=== PATIENT | female | born 1985 ===

== ENCOUNTER 2017-03-23 18:59 | Observation (INO) | payer OTHER ==
[2017-03-23] MEDS ORDERED: Iohexol 240 (50 ml) PO STA (20:11)
[2017-03-23] MEDS ORDERED: Sodium Chloride 0.9% 1,000 ML IV STA (20:12)
[2017-03-23] MEDS ORDERED: Iohexol 240 (50 ml) ONE (20:20)
--- NOTE | 2017-03-23 20:24 | ED PDOC ---
HPI: Abdomen Time Seen by Provider: 03/23/17 20:01 Chief Complaint (Nursing): Abdominal Pain Chief Complaint (Provider): abdominal pain History Per: Patient History/Exam Limitations: no limitations Onset/Duration Of Symptoms: Days (x 2 weeks), Intermittent Episodes Outside of [place] travel?: No Location Of Pain/Discomfort: RLQ Associated Symptoms: Nausea. denies: Fever, Chills, Vomiting, Diarrhea Additional Complaint(s): Nafisa Curtis is a 31 year old female, with no previous medical history, who presents to the ED with complaints of right lower quadrant pain intermittently ongoing for 2 weeks with associated nausea. Patient denies any urinary symptoms , vaginal bleeding, vomiting or diarrhea. PMD: none provided Past Medical History Reviewed: Historical Data, Nursing Documentation, Vital Signs Vital Signs: Last Vital Signs Temp 98.1 F 03/24/17 00:15 Pulse 84 03/24/17 00:15 Resp 16 03/24/17 00:15 BP 126/75 03/24/17 00:15 Pulse Ox 100 03/28/17 17:01 - Medical History PMH: No Chronic Diseases - Surgical History Surgical History: No Surg Hx - Family History Family History: States: No Known Family Hx - Home Medications Home Medications: Ambulatory Orders Medication Instructions Recorded Vit Calc,Iron,Folic 1 each PO DAILY #30 tablet 03/24/17 [ Vitamins] - Allergies Allergies/Adverse Reactions: Allergies Allergy/AdvReac Type Severity Reaction Status Date / Time No Known Allergies Allergy Verified 03/23/17 19:18 Review of Systems ROS Statement: Except As Marked, All Systems Reviewed And Found Negative Constitutional: Negative for: Fever, Chills Gastrointestinal: Positive for: Nausea, Abdominal Pain (RLQ). Negative for: Vomiting, Diarrhea Genitourinary Female: Negative for: Dysuria, Frequency, Incontinence, Vaginal Discharge, Vaginal Bleeding - Laboratory Results Result Diagrams: 03/23/17 20:55 03/23/17 20:55 - ECG O2 Sat by Pulse Oximetry: 100 (RA) Pulse Ox Interpretation: Normal Medical Decision Making Medical Decision Making: Initial Impression: Appendicitis Initial Plan: * CT abd Pelvis PO & IV contrast * labs * urine * urine dipstick * labs * partial thromboplastin time * prothrombin time * morphine * IV NS 1,000 ml at 1,000 ml/hr * omnipaque * zofran * urinalysis * ED OBS * reevaluation [id number]: Spoke with Dr. Lacy and findings were reviewed. States patient can be discharged and f/u w/ [facility] in clinic outpatient. Scribe Attestation: Documented by Ayla Kerr, acting as a scribe for Ayla Narayanan MD. Provider Scribe Attestation: All medical record entries made by the Scribe were at my direction and personally dictated by me. I have reviewed the chart and agree that the record accurately reflects my personal performance of the history, physical exam, medical decision making, and the department course for this patient. I have also personally directed, reviewed, and agree with the discharge instructions and disposition. ED OBSERVATION Date of observation admission: 03/23/17 Time of observation admission: 20:15 - Observation admission statement Patient is being placed in observation because:: abdominal pain, labs and ultra sound. Disposition - Clinical Impression Clinical Impression: Abdominal pain during in first trimester - Patient ED Disposition Is Patient to be Admitted: No Counseled Patient/Family Regarding: Studies Performed, Diagnosis, Need For Followup - Disposition Disposition: Routine/Home Disposition Time: 23:55 Condition: STABLE
[2017-03-23 21:01] LABS: BASO # 0.1 K/uL (0.0-0.2); BASO % 0.6 % (0.0-2.0); EOS # 0.1 K/uL (0.0-0.7); EOS % 0.4 % (0.0-4.0); HEMATOCRIT 39.9 % (34.0-47.0); LYMPH # 4.3 K/uL (1.0-4.3); LYMPH % 33.1 % (20.0-40.0); MEAN CELL VOLUME 84.5 fl (81.0-99.0); MEAN CORPUSCULAR HEMOGLOBIN 28.8 pg (27.0-31.0); MEAN PLATELET VOLUME 8.1 fl (7.2-11.7); MONO # 0.7 K/uL (0.0-0.8); MONO % 5.4 % (0.0-10.0); NEUT # 7.8 K/uL (1.8-7.0); NEUT % 60.5 % (50.0-75.0); NRBC % 0.1 % (0.0-0.0); RED CELL DISTRIBUTION WIDTH 12.8 % (11.5-14.5); WHITE BLOOD COUNT 12.9 K/uL (4.8-10.8)
[2017-03-23 21:03] LABS: RBC URINE 3 /hpf (0-3); URINE BACTERIA RARE (<OCC); URINE BILIRUBIN NEGATIVE (NEGATIVE); URINE BLOOD NEGATIVE (NEGATIVE); URINE COLOR YELLOW (YELLOW); URINE GLUCOSE (UA) NEG (Normal); URINE KETONE NEGATIVE (NEGATIVE); URINE LEUKOCYTE ESTERASE NEG Leu/uL (Negative); URINE PROTEIN NEGATIVE (NEGATIVE); URINE UROBILINOGEN 0.2-1.0 mg/dL (0.2-1.0); WBC URINE < 1 /hpf (0-5)
[2017-03-23 21:16] LABS: ALB/GLOB RATIO 1.2 (1.0-2.1); ALKALINE PHOSPHATASE 60 U/L (38-126); ALT/SGPT 24 U/L (9-52); AST/SGOT 24 U/L (14-36); BILIRUBIN,TOTAL 0.8 mg/dl (0.2-1.3); BLOOD UREA NITROGEN 13 mg/dl (7-17); CALCIUM 9.4 mg/dL (8.4-10.2); CARBON DIOXIDE 25 mmol/L (22-30); CHLORIDE 105 mmol/L (98-107); GFR AFRICAN-AMERICAN > 60; GLUCOSE,RANDOM 100 mg/dL (65-105); POTASSIUM 4.3 MMOL/L (3.6-5.0); SODIUM 139 mmol/l (132-148); TOTAL PROTEIN 7.6 G/DL (6.3-8.2)
[2017-03-23 21:21] LABS: PARTIAL THROMBOPLASTIN TIME 25.7 SECONDS (23.3-32.5)
--- NOTE | 2017-03-23 22:23 | US ---
EXAM: US , Transvaginal CLINICAL HISTORY: 31 years old, female; Pain; Other: Rlq pain; Gestational age or lmp: Unknown; TECHNIQUE: Real-time transvaginal obstetrical ultrasound of the maternal pelvis and a first trimester with image documentation. Transvaginal imaging was used for better evaluation of the fetus and adnexa. EXAM DATE/TIME: 03/23/2017 8:41 PM COMPARISON: No relevant prior studies available. FINDINGS: The uterus measures 7 x 4 x 6 cm. The cervix measures 3.5 cm. There is an intrauterine gestational sac containing a yolk sac. No pole or heart rate. Gestational sac measurements correspond to a gestational age of 5 weeks 2 days. The yolk sac measures 3 mm. The maternal left ovary is normal. There are 2 round hypoechoic lesions within the maternal right ovary both of which measure approximately 1.8 cm in diameter. One of the lesions has imaging characteristics consistent with a simple cyst. The other is heterogeneous, possibly a complex cyst, and followup is recommended. Color flow and doppler vascular waveforms were demonstrated to both maternal ovaries. IMPRESSION: Intrauterine gestational sac containing yolk sac however no pole or heart rate at this time. Recommend followup beta-hCG level and followup ultrasound.
--- NOTE | 2017-03-23 22:27 | US ---
EXAM: US Abdomen Limited, Appendix CLINICAL HISTORY: 31 years old, female; Pain; Other: Rlq; ; Additional info: Rlq pain TECHNIQUE: Real-time ultrasound of the right lower quadrant with image documentation. EXAM DATE/TIME: 03/23/2017 8:42 PM COMPARISON: No relevant prior studies available. FINDINGS: There is nonvisualization of the appendix. There are no fluid collections in the RLQ. IMPRESSION: Nonvisualization of the appendix.
[2017-03-24 02:48] VITALS: BP 126/75; PULSE 84; RESP 16; TEMP 98.1
[2017-03-28 17:01] VITALS: O2SAT 100
== END 2017-03-24 00:07 | disposition home or self-care (01) ==
LOC: H.ER 18:59 → H.EROBSV 20:11
PROVIDERS: ADMIT Emergency Medicine; ATTEND Emergency Medicine
DX: O26.891 Other specified pregnancy related conditions, first trimester (principal); R10.31 Right lower quadrant pain

== ENCOUNTER 2017-04-02 19:47 | Emergency (ER) | payer OTHER, SELFPAY ==
[2017-04-02 19:54] VITALS: RESP 16; TEMP 98.9; O2SAT 100
[2017-04-02] MEDS ORDERED: Lactated Ringer's 1,000 ML IV SCH (21:00)
--- NOTE | 2017-04-02 21:17 | ED PDOC ---
HPI: General Adult Time Seen by Provider: 04/02/17 20:16 Chief Complaint (Nursing): Abdominal Pain History Per: Patient Additional Complaint(s): Pt. states for the past 2 weeks she's had nausea and non-bloody vomiting along with R sided pelvic pain. Pt. states she is currently 5-6 weeks . Pt. was initially seen in ED 2 weeks ago for same and had an US done which was inconclusive. She f/u with Dr. Pete yesterday and had another US but is uncertain of results. Reports pain has improved but nausea has not. Denies vaginal bleeding, diarrhea, fever, dysuria, hematuria, vaginal discharge. Past Medical History Reviewed: Historical Data, Nursing Documentation, Vital Signs Vital Signs: Last Vital Signs Temp 98.9 F 04/02/17 19:51 Pulse 83 04/02/17 19:51 Resp 16 04/02/17 19:51 BP 110/63 04/02/17 19:51 Pulse Ox 100 04/02/17 21:18 - Family History Family History: States: No Known Family Hx - Home Medications Home Medications: Ambulatory Orders Medication Instructions Recorded Vit Calc,Iron,Folic 1 each PO DAILY #30 tablet 03/24/17 [ Vitamins] Doxylamine/Pyridoxine HCl (B6) 1 - 2 each PO DAILY PRN #30 04/02/17 [Canelo Saldana 10-10 mg Tablet] tablet.dr - Allergies Allergies/Adverse Reactions: Allergies Allergy/AdvReac Type Severity Reaction Status Date / Time No Known Allergies Allergy Verified 03/23/17 19:18 Review of Systems ROS Statement: Except As Marked, All Systems Reviewed And Found Negative Gastrointestinal: Positive for: Nausea, Vomiting Genitourinary Female: Positive for: Pelvic Pain Physical Exam - Reviewed Nursing Documentation Reviewed: Yes Vital Signs Reviewed: Yes - Physical Exam Appears: Positive for: Well, Non-toxic, No Acute Distress Head Exam: Positive for: ATRAUMATIC, NORMAL INSPECTION, NORMOCEPHALIC Skin: Positive for: Normal Color, Warm. Negative for: Rash Eye Exam: Positive for: EOMI, Normal appearance, PERRL ENT: Positive for: Normal ENT Inspection Neck: Positive for: Normal, Painless ROM Cardiovascular/Chest: Positive for: Regular Rate, Rhythm Respiratory: Positive for: CNT, Normal Breath Sounds Gastrointestinal/Abdominal: Positive for: Normal Exam, Soft. Negative for: Tenderness Back: Positive for: Normal Inspection. Negative for: L CVA Tenderness, R CVA Tenderness Extremity: Positive for: Normal ROM Neurologic/Psych: Positive for: Alert, Oriented - Laboratory Results Result Diagrams: 04/02/17 21:13 04/02/17 21:13 - ECG O2 Sat by Pulse Oximetry: 100 - Progress ED Course And Treament: Labs ordered. OBUS ordered. IV LR bolus x 1 given. US: IMPRESSION: 1. Single live intrauterine gestation. 2. RIGHT ovarian cyst. On re-evaluation, pt. reports complete relief of nausea. States she is feeling much better. Disposition - Clinical Impression Clinical Impression: Hyperemesis gravidarum - Patient ED Disposition Is Patient to be Admitted: No - Disposition Referrals: Flakito Dietz MD [Staff Provider] - Disposition: Routine/Home Disposition Time: 23:37 Condition: IMPROVED Prescriptions: Doxylamine/Pyridoxine HCl (B6) [Canelo Saldana 10-10 mg Tablet] 1 - 2 each PO DAILY PRN #30 tablet. PRN Reason: Nausea/Vomiting Instructions: Hyperemesis Gravidarum (ED) Print Language: [place]
[2017-04-02 21:22] LABS: BASO % 0.1 % (0.0-2.0); EOS # 0.1 K/uL (0.0-0.7); HEMATOCRIT 39.5 % (34.0-47.0); LYMPH # 3.1 K/uL (1.0-4.3); LYMPH % 25.4 % (20.0-40.0); MEAN CELL VOLUME 85.4 fl (81.0-99.0); MEAN CORPUSCULAR HEMOGLOBIN 28.8 pg (27.0-31.0); MEAN CORPUSCULAR HGB CONC 33.7 g/dL (33.0-37.0); MONO # 0.7 K/uL (0.0-0.8); MONO % 5.8 % (0.0-10.0); NEUT # 8.2 K/uL (1.8-7.0); NEUT % 67.7 % (50.0-75.0); RED CELL DISTRIBUTION WIDTH 12.9 % (11.5-14.5); WHITE BLOOD COUNT 12.1 K/uL (4.8-10.8)
[2017-04-02 21:32] LABS: ALB/GLOB RATIO 1.3 (1.0-2.1); ALKALINE PHOSPHATASE 58 U/L (38-126); ALT/SGPT 28 U/L (9-52); AST/SGOT 18 U/L (14-36); BILIRUBIN,TOTAL 0.4 mg/dl (0.2-1.3); BLOOD UREA NITROGEN 5 mg/dl (7-17); CALCIUM 8.9 mg/dL (8.4-10.2); CARBON DIOXIDE 22 mmol/L (22-30); CHLORIDE 107 mmol/L (98-107); GFR AFRICAN-AMERICAN > 60; GLUCOSE,RANDOM 85 mg/dL (65-105); POTASSIUM 4.1 MMOL/L (3.6-5.0); SODIUM 138 mmol/l (132-148); TOTAL PROTEIN 6.8 G/DL (6.3-8.2)
[2017-04-02 22:04] LABS: RBC URINE 4 /hpf (0-3); URINE BILIRUBIN NEGATIVE (NEGATIVE); URINE BLOOD NEGATIVE (NEGATIVE); URINE COLOR YELLOW (YELLOW); URINE GLUCOSE (UA) NEG (Normal); URINE KETONE NEGATIVE (NEGATIVE); URINE LEUKOCYTE ESTERASE NEG Leu/uL (Negative); URINE PROTEIN NEGATIVE (NEGATIVE); URINE UROBILINOGEN 0.2-1.0 mg/dL (0.2-1.0); WBC CLUMPS MOD /hpf; WBC URINE 17 /hpf (0-5)
--- NOTE | 2017-04-02 22:25 | US ---
EXAM: US , Transvaginal CLINICAL HISTORY: 31 years old, female; Pain; Other: Rt sided pelvic pain; Gestational age or lmp: 0309/17; ; Additional info: R sided pelvic pain TECHNIQUE: Real-time transvaginal obstetrical ultrasound of the maternal pelvis and a first trimester with image documentation. Transvaginal imaging was used for better evaluation of the fetus and adnexa. COMPARISON: No relevant prior studies available. FINDINGS: Gestation: Single live intrauterine gestation. heart rate of 139 beats per minute. [place]-rump length of 0.91 cm, correlating with gestational age of 6 weeks 6 days. Uterus/cervix: No subchorionic hemorrhage. No cervical dilatation or effacement. Ovaries: RIGHT ovary: 1.9 x 1.7 x 1.8 cm anechoic lesion. LEFT ovary: Normal. No adnexal masses. Free fluid: No significant free fluid. IMPRESSION: 1. Single live intrauterine gestation. 2. RIGHT ovarian cyst. 3. Incidental/non-acute findings are described above.
[2017-04-02 23:48] VITALS: BP 125/80; PULSE 75
== END 2017-04-02 23:49 | disposition home or self-care (01) ==
LOC: H.ER 19:47
DX: O21.0 Mild hyperemesis gravidarum (principal); R10.2 Pelvic and perineal pain; N83.201 Unspecified ovarian cyst, right side; O26.891 Other specified pregnancy related conditions, first trimester

== ENCOUNTER 2017-04-24 08:54 | Emergency (ER) | payer SELFPAY ==
[2017-04-24 08:59] VITALS: O2SAT 99; BMI 20.5
--- NOTE | 2017-04-24 09:40 | ED PDOC ---
HPI: General Adult Time Seen by Provider: 04/24/17 09:10 Chief Complaint (Nursing): Female Genitourinary Chief Complaint (Provider): abdominal pain History Per: Patient History/Exam Limitations: no limitations Additional Complaint(s): 31yo female 10 weeks comes with mild lower abdominal and lower back pain. Also reports some dysuria and vomit. Past Medical History Reviewed: Historical Data, Nursing Documentation, Vital Signs Vital Signs: Last Vital Signs Temp 97.9 F 04/24/17 13:30 Pulse 75 04/24/17 13:30 Resp 16 04/24/17 13:30 BP 122/65 04/24/17 13:30 Pulse Ox 99 04/24/17 13:38 - Medical History PMH: No Chronic Diseases - Surgical History Surgical History: No Surg Hx - Family History Family History: States: Unknown Family Hx - Social History Current smoker - smoking cessation education provided: No Alcohol: None Drugs: Denies - Home Medications Home Medications: Ambulatory Orders Medication Instructions Recorded Vit Calc,Iron,Folic 1 each PO DAILY #30 tablet 03/24/17 [ Vitamins] Doxylamine/Pyridoxine HCl (B6) 1 - 2 each PO DAILY PRN #30 04/02/17 [Canelo Saldana 10-10 mg Tablet] tablet. Vit Calc,Iron,Folic 1 each PO DAILY #30 tablet 04/24/17 [ Vitamins] - Allergies Allergies/Adverse Reactions: Allergies Allergy/AdvReac Type Severity Reaction Status Date / Time No Known Allergies Allergy Verified 03/23/17 19:18 Review of Systems ROS Statement: Except As Marked, All Systems Reviewed And Found Negative Gastrointestinal: Positive for: Vomiting, Abdominal Pain Genitourinary Female: Positive for: Dysuria. Negative for: Vaginal Bleeding Musculoskeletal: Positive for: Back Pain Physical Exam - Reviewed Nursing Documentation Reviewed: Yes Vital Signs Reviewed: Yes - Physical Exam Appears: Positive for: Well, Non-toxic, No Acute Distress Head Exam: Positive for: ATRAUMATIC, NORMAL INSPECTION, NORMOCEPHALIC Skin: Positive for: Warm, Dry Eye Exam: Positive for: EOMI, PERRL Cardiovascular/Chest: Positive for: Regular Rate, Rhythm Respiratory: Positive for: Normal Breath Sounds. Negative for: Rales, Rhonchi, Wheezing Gastrointestinal/Abdominal: Positive for: Soft, Tenderness (mild suprapubic tendernes). Negative for: Guarding, Rebound Extremity: Positive for: Normal ROM - Laboratory Results Result Diagrams: 04/24/17 10:14 04/24/17 10:14 - ECG O2 Sat by Pulse Oximetry: 99 (RA) Pulse Ox Interpretation: Normal - CT Scan/US Pelvic ultrasound Other Rad Studies (CT/US): Radiology Report Reviewed (10 weeks 3 days live intrauterine gestation. Gestational concordance documented and there is adequate interval progression.) Medical Decision Making Medical Decision Makin labs, US OB ordered. Disposition - Clinical Impression Clinical Impression: Abdominal pain during in first trimester - Disposition Referrals: [facility] [Outside] [facility] [Outside] Disposition: Routine/Home Disposition Time: 12:30 Condition: STABLE Prescriptions: Vit Calc,Iron,Folic [ Vitamins] 1 each PO DAILY #30 tablet Instructions: Abdominal Pain in (ED) Print Language: [place] Additional Comments - Additional Comments Additional Comments: Scribe Attestation: Documented by Kevin Daniel acting as a scribe for Ayla Narayanan MD. Provider Scribe Attestation: All medical record entries made by the Scribe were at my direction and personally dictated by me. I have reviewed the chart and agree that the record accurately reflects my personal performance of the history, physical exam, medical decision making, and the department course for this patient. I have also personally directed, reviewed, and agree with the discharge instructions and disposition.
[2017-04-24 10:32] LABS: BASO % 0.2 % (0.0-2.0); EOS # 0.1 K/uL (0.0-0.7); EOS % 0.8 % (0.0-4.0); HEMATOCRIT 38.6 % (34.0-47.0); LYMPH % 17.5 % (20.0-40.0); MEAN CELL VOLUME 84.6 fl (81.0-99.0); MEAN CORPUSCULAR HEMOGLOBIN 28.7 pg (27.0-31.0); MEAN CORPUSCULAR HGB CONC 33.9 g/dL (33.0-37.0); MEAN PLATELET VOLUME 8.1 fl (7.2-11.7); MONO # 0.6 K/uL (0.0-0.8); MONO % 4.9 % (0.0-10.0); NEUT # 8.8 K/uL (1.8-7.0); NEUT % 76.6 % (50.0-75.0); NRBC % 0.1 % (0.0-0.0); RED CELL DISTRIBUTION WIDTH 12.8 % (11.5-14.5); WHITE BLOOD COUNT 11.5 K/uL (4.8-10.8)
[2017-04-24 10:49] LABS: ALB/GLOB RATIO 1.2 (1.0-2.1); ALKALINE PHOSPHATASE 49 U/L (38-126); ALT/SGPT 24 U/L (9-52); AST/SGOT 19 U/L (14-36); BILIRUBIN,TOTAL 0.5 mg/dl (0.2-1.3); BLOOD UREA NITROGEN 5 mg/dl (7-17); CALCIUM 9.1 mg/dL (8.4-10.2); CARBON DIOXIDE 23 mmol/L (22-30); CHLORIDE 107 mmol/L (98-107); GFR AFRICAN-AMERICAN > 60; GLUCOSE,RANDOM 78 mg/dL (65-105); POTASSIUM 4.5 MMOL/L (3.6-5.0); SODIUM 138 mmol/l (132-148); TOTAL PROTEIN 7.1 G/DL (6.3-8.2)
[2017-04-24 13:14] LABS: URINE APPEARANCE SL CLOUDY (CLEAR); URINE BILIRUBIN NEGATIVE (NEGATIVE); URINE BLOOD NEGATIVE (NEGATIVE); URINE COLOR AMBER (YELLOW); URINE GLUCOSE (UA) NEG (Normal); URINE KETONE NEGATIVE (NEGATIVE); URINE LEUKOCYTE ESTERASE NEG Leu/uL (Negative); URINE PROTEIN 100 mg/dL (NEGATIVE); URINE UROBILINOGEN 0.2-1.0 mg/dL (0.2-1.0)
--- NOTE | 2017-04-24 13:14 | US ---
PROCEDURE: First trimester ultrasound HISTORY: Lower abd pain COMPARISON: 04/02/2017. TECHNIQUE: Standard protocol for this study/examination. FINDINGS: Prior examinations from the current : 04/02/2017. TECHNIQUE: Real-time 2D imaging, duplex and color Doppler. FINDINGS: Cardiac activity: Present Rate: 157 BPM Measurements: [place] rump length: 3.28 cm Gestational age based on CRL 10 weeks 1 day Gestational age based on gestational sac measurement 10 weeks 4 days Gestational age derived from LMP: 10 weeks ROGELIO based on LMP: 11/20/2017 ROGELIO based on biometry: 11/17/2017 Gestational concordance documented Yolk sac not identified Uterus: Unremarkable. No Cervical abnormalities: Negative examination for cervical dilatation or effacement. Subchorionic hemorrhage: None ADNEXA: Right: 2.1 x 3.8 cm. Normal Doppler arterial waveform documented. Left: 1.1 x 2.1 cm. Normal Doppler arterial waveform documented Fluid in the cul-de-sac: None IMPRESSION: 10 weeks 3 days live intrauterine gestation. Gestational concordance documented and there is adequate interval progression.
[2017-04-24 13:57] VITALS: BP 122/65; PULSE 75; RESP 16; TEMP 97.9
== END 2017-04-24 13:56 | disposition home or self-care (01) ==
LOC: H.ER 08:54
DX: O26.891 Other specified pregnancy related conditions, first trimester (principal); Z3A.10 10 weeks gestation of pregnancy

== ENCOUNTER 2017-06-13 12:01 | Emergency (ER) | payer SELFPAY ==
[2017-06-13 12:01] VITALS: BMI 20.5
[2017-06-13 12:31] VITALS: PULSE 86
--- NOTE | 2017-06-13 13:18 | ED PDOC ---
HPI: Female Pain Time Seen by Provider: 06/13/17 13:17 Chief Complaint (Nursing): Female Genitourinary Chief Complaint (Provider): ABDOMINAL PAIN History Per: Patient (31 Y/O FEMALE HERE 18 WEEKS GESTATION WITH LOWER PELVIC PAIN BILATERALLY TENDER TO TOUCH AND MOVEMENT. DENIES ANY VAGINAL BLEEDING/DYSURIA/FEVERS/CHILLS.) Past Medical History Reviewed: Historical Data, Nursing Documentation, Vital Signs Vital Signs: Last Vital Signs Temp 97 F L 06/13/17 12:27 Pulse 86 06/13/17 12:27 Resp 18 06/13/17 12:27 BP 105/60 06/13/17 12:27 Pulse Ox 99 06/13/17 12:27 - Family History Family History: States: Unknown Family Hx - Home Medications Home Medications: Ambulatory Orders Medication Instructions Recorded Vit Calc,Iron,Folic 1 each PO DAILY #30 tablet 03/24/17 [ Vitamins] Doxylamine/Pyridoxine HCl (B6) 1 - 2 each PO DAILY PRN #30 04/02/17 [Canelo Saldana 10-10 mg Tablet] tablet. Vit Calc,Iron,Folic 1 each PO DAILY #30 tablet 04/24/17 [ Vitamins] Acetaminophen [Acetaminophen Extra 2 tab PO Q6 PRN #20 tablet 06/13/17 Strength] - Allergies Allergies/Adverse Reactions: Allergies Allergy/AdvReac Type Severity Reaction Status Date / Time No Known Allergies Allergy Verified 03/23/17 19:18 Review of Systems ROS Statement: Except As Marked, All Systems Reviewed And Found Negative Physical Exam - Reviewed Nursing Documentation Reviewed: Yes Vital Signs Reviewed: Yes - Physical Exam Appears: Positive for: Well, Non-toxic, No Acute Distress Head Exam: Positive for: ATRAUMATIC, NORMAL INSPECTION, NORMOCEPHALIC Skin: Positive for: Normal Color, Warm, DRY Eye Exam: Positive for: EOMI, Normal appearance, PERRL ENT: Positive for: Normal ENT Inspection Neck: Positive for: Normal, Painless ROM Cardiovascular/Chest: Positive for: Regular Rate, Rhythm Respiratory: Positive for: CNT, Normal Breath Sounds Gastrointestinal/Abdominal: Positive for: Normal Exam, Bowel Sounds, Soft, Tenderness (TENDERNESS LEFT LOWER ABDOMEN BY UTERUS.) Back: Positive for: Normal Inspection Extremity: Positive for: Normal ROM Neurologic/Psych: Positive for: Alert, Oriented - Laboratory Results Result Diagrams: 06/13/17 13:35 06/13/17 13:35 - ECG O2 Sat by Pulse Oximetry: 99 - Progress ED Course And Treament: ACETAMINOPHEN 975MG pelvic us: 2.6 left ovarian cyst; sliup 17 weeks 4 day Disposition - Clinical Impression Clinical Impression: Abdominal pain during in second trimester, Ovarian cyst - Patient ED Disposition Is Patient to be Admitted: No - Disposition Disposition: Routine/Home Disposition Time: 17:40 Condition: FAIR Prescriptions: Acetaminophen [Acetaminophen Extra Strength] 2 tab PO Q6 PRN #20 tablet PRN Reason: Pain, Moderate (4-7) Instructions: Ovarian Cyst (ED), Threatened Miscarriage (ED) Forms: [facility] ED School/Work Excuse Print Language: GREENLANDIC
[2017-06-13 13:48] LABS: BASO % 0.2 % (0.0-2.0); EOS # 0.1 K/uL (0.0-0.7); HEMATOCRIT 35.6 % (34.0-47.0); LYMPH # 2.5 K/uL (1.0-4.3); LYMPH % 18.7 % (20.0-40.0); MEAN CELL VOLUME 84.4 fl (81.0-99.0); MEAN CORPUSCULAR HEMOGLOBIN 29.1 pg (27.0-31.0); MEAN CORPUSCULAR HGB CONC 34.5 g/dL (33.0-37.0); MEAN PLATELET VOLUME 8.2 fl (7.2-11.7); MONO # 0.9 K/uL (0.0-0.8); MONO % 6.5 % (0.0-10.0); NEUT # 9.9 K/uL (1.8-7.0); NEUT % 73.6 % (50.0-75.0); NRBC % 0.1 % (0.0-0.0); RED CELL DISTRIBUTION WIDTH 13.3 % (11.5-14.5); WHITE BLOOD COUNT 13.5 K/uL (4.8-10.8)
[2017-06-13 14:05] LABS: RBC URINE 4 /hpf (0-3); URINE BILIRUBIN NEGATIVE (NEGATIVE); URINE BLOOD NEGATIVE (NEGATIVE); URINE COLOR YELLOW (YELLOW); URINE GLUCOSE (UA) NEG (Normal); URINE KETONE NEGATIVE (NEGATIVE); URINE LEUKOCYTE ESTERASE NEG Leu/uL (Negative); URINE PROTEIN NEGATIVE (NEGATIVE); URINE UROBILINOGEN 0.2-1.0 mg/dL (0.2-1.0); WBC URINE 3 /hpf (0-5)
[2017-06-13 14:26] LABS: CHLORIDE 107 mmol/L (98-107); POTASSIUM 3.6 MMOL/L (3.6-5.0); SODIUM 136 mmol/l (132-148)
[2017-06-13 14:28] LABS: BILIRUBIN,TOTAL 0.5 mg/dl (0.2-1.3); GFR AFRICAN-AMERICAN > 60
[2017-06-13 14:29] LABS: ALB/GLOB RATIO 1.1 (1.0-2.1); ALKALINE PHOSPHATASE 54 U/L (38-126); ALT/SGPT 32 U/L (9-52); AST/SGOT 27 U/L (14-36); BLOOD UREA NITROGEN 6 mg/dl (7-17); CARBON DIOXIDE 22 mmol/L (22-30); GLUCOSE,RANDOM 80 mg/dL (65-105); TOTAL PROTEIN 6.7 G/DL (6.3-8.2)
--- NOTE | 2017-06-13 17:36 | US ---
PROCEDURE: Obstetrical ultrasound examination HISTORY: EVALUATE LEFT OVARY/EVALUATE COMPARISON: 04/24/2017 TECHNIQUE: Transabdominal FINDINGS: Single live intrauterine gestation identified in variable presentation. The heart rate is 149 beats per minute. A grossly normal quantity of amniotic fluid is visualized. The cervix is closed and measures 5.8 cm in length. Normal anterior placenta is identified. There is no evidence placenta previa. biometry indicates a gestational age of 17 weeks 4 days. ROGELIO by ultrasound is 11/17/2017. anatomy was not assessed at this time. The right ovary is not visualized. The left ovary measures 3.4 x 2.2 x 3.8 cm. There is a simple left ovarian cysts measuring 1.5 x 2.2 x 2.6 cm. Arterial blood flow is demonstrated in the left ovary by Doppler interrogation. IMPRESSION: Single live intrauterine gestation of approximately 17 weeks 4 days gestational age. Anterior placenta. No evidence placenta previa. Cervix closed. Normal amniotic fluid volume. Variable presentation. 2.6 cm simple left ovarian cyst. Right ovary not visualized.
[2017-06-13 17:50] VITALS: BP 132/74; RESP 19; TEMP 98.6; O2SAT 100
== END 2017-06-13 17:50 | disposition home or self-care (01) ==
LOC: H.ER 12:01
DX: O20.0 Threatened abortion (principal); Z3A.17 17 weeks gestation of pregnancy

== ENCOUNTER 2017-07-11 08:13 | Emergency (ER) | payer SELFPAY ==
[2017-07-11 08:13] VITALS: BMI 20.5
[2017-07-11 08:25] VITALS: BP 108/60; PULSE 96; RESP 18; TEMP 98.5; O2SAT 100
--- NOTE | 2017-07-11 08:55 | ED PDOC ---
HPI: Dental Pain/Injury Time Seen by Provider: 07/11/17 08:27 Chief Complaint (Nursing): Dental Pain Chief Complaint (Provider): Dental Pain History Per: Patient History/Exam Limitations: no limitations Current Symptoms Are (Timing): Still Present Additional Complaint(s): Nafisa Curtis, a 32 year old female, who is currently 21 weeks presents to the ED with dental pain to right upper tooth #5. The patient reports that there has been swelling around the area for the past week. She reports that she was seen by a dentist a month ago and was prescribed amoxycillin but was not compliant as she only took 3 pills. Patient also notes a bump to the right upper neck. She states that she has take tyenol with no relief. Past Medical History Reviewed: Historical Data, Nursing Documentation, Vital Signs Vital Signs: Last Vital Signs Temp 98.5 F 07/11/17 08:23 Pulse 96 H 07/11/17 08:23 Resp 18 07/11/17 08:23 BP 108/60 07/11/17 08:23 Pulse Ox 100 07/11/17 08:23 - Medical History PMH: No Chronic Diseases - Surgical History Surgical History: No Surg Hx - Family History Family History: States: Unknown Family Hx - Home Medications Home Medications: Ambulatory Orders Medication Instructions Recorded Vit Calc,Iron,Folic 1 each PO DAILY #30 tablet 03/24/17 [ Vitamins] Doxylamine/Pyridoxine HCl (B6) 1 - 2 each PO DAILY PRN #30 04/02/17 [Canelo Saldana 10-10 mg Tablet] tablet. Vit Calc,Iron,Folic 1 each PO DAILY #30 tablet 04/24/17 [ Vitamins] Acetaminophen [Acetaminophen Extra 2 tab PO Q6 PRN #20 tablet 06/13/17 Strength] Penicillin VK [Penicillin VK Tab] 500 mg PO QID #56 tab 07/11/17 - Allergies Allergies/Adverse Reactions: Allergies Allergy/AdvReac Type Severity Reaction Status Date / Time No Known Allergies Allergy Verified 03/23/17 19:18 Review of Systems ROS Statement: Except As Marked, All Systems Reviewed And Found Negative ENT: Positive for: Other (Dental Pain to right upper tooth #5; Swelling around area.) Physical Exam - Reviewed Nursing Documentation Reviewed: Yes Vital Signs Reviewed: Yes - Physical Exam Appears: Positive for: Non-toxic, No Acute Distress Head Exam: Positive for: ATRAUMATIC, NORMAL INSPECTION, NORMOCEPHALIC Skin: Positive for: Normal Color, Warm, Dry Eye Exam: Positive for: Normal appearance, EOMI, PERRL ENT: Positive for: Normal ENT Inspection, Other (Gingival edema around tooth #5 ; no abscess; no bleeding; no discharge.) Neck: Positive for: Painless ROM, Supple. Negative for: Normal (Anterior cervical lymphadenopathy right side) Cardiovascular/Chest: Positive for: Regular Rate, Rhythm, Chest Non Tender. Negative for: Tachycardia Respiratory: Positive for: Normal Breath Sounds. Negative for: Rales, Rhonchi, Wheezing, Respiratory Distress - ECG O2 Sat by Pulse Oximetry: 100 (RA) Pulse Ox Interpretation: Normal Medical Decision Making Medical Decision Makin Initial Impression: 32 year old female presenting with gingivitis Initial Plan: * Scribe Attestation Documented by Joellen Li acting as a scribe for Ayla Narayanan MD. Provider Attestation All medical record entries made by the Scribe were at my direction and personally dictated by me. I have reviewed the chart and agree that the record accurately reflects my personal performance of the history, physical exam, medical decision making, and the department course for this patient. I have also personally directed, reviewed, and agree with the discharge instructions and disposition. Disposition - Clinical Impression Clinical Impression: Gingivitis - Disposition Disposition: Routine/Home Disposition Time: 08:52 Condition: STABLE Additional Instructions: FOLLOW-UP WITH [facility] WITHIN 2 DAYS FOR REEVALUATION. Prescriptions: Penicillin VK [Penicillin VK Tab] 500 mg PO QID #56 tab Instructions: Gingivitis (ED) Forms: [employer] (Lao)
== END 2017-07-11 08:59 | disposition home or self-care (01) ==
LOC: H.ER 08:13
DX: K05.01 Acute gingivitis, non-plaque induced (principal); Z33.1 Pregnant state, incidental

== ENCOUNTER 2017-08-18 16:58 | Emergency (ER) | payer SELFPAY ==
[2017-08-18 16:58] VITALS: BMI 20.5
[2017-08-18 17:04] VITALS: TEMP 98.2
--- NOTE | 2017-08-18 17:40 | ED PDOC ---
HPI: Abdomen Time Seen by Provider: 08/18/17 17:08 Chief Complaint (Nursing): Abdominal Pain Chief Complaint (Provider): Abdominal Pain and Decreased Movement History Per: Patient History/Exam Limitations: no limitations Onset/Duration Of Symptoms: Hrs Outside of [place] travel?: No Current Symptoms Are (Timing): Still Present Associated Symptoms: Nausea. denies: Fever Additional Complaint(s): Nafisa Curtis, a 32 year old female, who is currently 27 weeks presents to the ED complaining of abdominal pain and decreased movement. Patient also notes some nausea. Denies vaginal bleeding, fever, dizziness. Past Medical History Reviewed: Historical Data, Nursing Documentation, Vital Signs Vital Signs: Last Vital Signs Temp 98.2 F 08/19/17 01:02 Pulse 82 08/19/17 01:02 Resp 20 08/19/17 01:02 BP 101/58 L 08/19/17 01:02 Pulse Ox 99 08/19/17 01:02 - Medical History PMH: No Chronic Diseases - Surgical History Surgical History: No Surg Hx - Family History Family History: States: Unknown Family Hx - Home Medications Home Medications: Ambulatory Orders Medication Instructions Recorded Vit Calc,Iron,Folic 1 each PO DAILY #30 tablet 03/24/17 [ Vitamins] Doxylamine/Pyridoxine HCl (B6) 1 - 2 each PO DAILY PRN #30 04/02/17 [Canelo Saldana 10-10 mg Tablet] tablet. Vit Calc,Iron,Folic 1 each PO DAILY #30 tablet 04/24/17 [ Vitamins] Acetaminophen [Acetaminophen Extra 2 tab PO Q6 PRN #20 tablet 06/13/17 Strength] Penicillin VK [Penicillin VK Tab] 500 mg PO QID #56 tab 07/11/17 - Allergies Allergies/Adverse Reactions: Allergies Allergy/AdvReac Type Severity Reaction Status Date / Time No Known Allergies Allergy Verified 03/23/17 19:18 Review of Systems ROS Statement: Except As Marked, All Systems Reviewed And Found Negative Constitutional: Negative for: Fever Gastrointestinal: Positive for: Nausea, Abdominal Pain (Abdominal paina nd decreased movement) Genitourinary Female: Negative for: Vaginal Bleeding Neurological: Negative for: Dizziness Physical Exam - Reviewed Nursing Documentation Reviewed: Yes Vital Signs Reviewed: Yes - Physical Exam Appears: Positive for: Non-toxic, No Acute Distress Head Exam: Positive for: ATRAUMATIC, NORMAL INSPECTION, NORMOCEPHALIC Skin: Positive for: Normal Color, Warm, Dry. Negative for: Rash Eye Exam: Positive for: Normal appearance, EOMI, PERRL. Negative for: Nystagmus ENT: Positive for: Normal ENT Inspection Neck: Positive for: Normal, Painless ROM, Supple Cardiovascular/Chest: Positive for: Regular Rate, Rhythm, Chest Non Tender. Negative for: Tachycardia Respiratory: Positive for: Normal Breath Sounds. Negative for: Wheezing, Respiratory Distress Gastrointestinal/Abdominal: Positive for: Bowel Sounds, Soft, Tenderness (mild epigastric tenderness), Other (Fondus above umbilicus). Negative for: Guarding , Rebound Back: Positive for: Normal Inspection. Negative for: L CVA Tenderness, R CVA Tenderness Extremity: Positive for: Normal ROM. Negative for: Tenderness, Deformity, Swelling Neurologic/Psych: Positive for: Alert, Oriented, Gait - Laboratory Results Result Diagrams: 08/18/17 17:30 08/18/17 17:30 - ECG O2 Sat by Pulse Oximetry: 100 (RA) Pulse Ox Interpretation: Normal Medical Decision Making Medical Decision Makin Initial Impression: 32 y/o female presenting with abdominal pain decreased movement Initial Plan: * CMP * Lipase * Udip * Upreg * CBC * Reevaluation 1745 Error in triage, patient reported that she was 7 weeks and not 27 weeks. Protocol goes to OB ED. Initial orders placed. Patient was transferred to OB ED when triage error was recognized. Scribe Attestation Documented by Joellen Li acting as a scribe for Carlos Fowler MD. Provider Attestation All medical record entries made by the Scribe were at my direction and personally dictated by me. I have reviewed the chart and agree that the record accurately reflects my personal performance of the history, physical exam, medical decision making, and the department course for this patient. I have also personally directed, reviewed, and agree with the discharge instructions and disposition. Disposition - Clinical Impression Clinical Impression: Abdominal pain - Patient ED Disposition Is Patient to be Admitted: Transfer of Care ([facility]) - Disposition Disposition: Transfer of Care Disposition Time: 17:20 Condition: STABLE Forms: [facility] (Swedish) Handoff Comments: transferred to [facility], see [facility] chart
[2017-08-18 17:54] LABS: BASO % 0.2 % (0.0-2.0); EOS # 0.2 K/uL (0.0-0.7); EOS % 1.2 % (0.0-4.0); HEMATOCRIT 31.3 % (34.0-47.0); LYMPH # 2.4 K/uL (1.0-4.3); LYMPH % 18.3 % (20.0-40.0); MEAN CORPUSCULAR HEMOGLOBIN 30.6 pg (27.0-31.0); MEAN CORPUSCULAR HGB CONC 34.8 g/dL (33.0-37.0); MEAN PLATELET VOLUME 8.2 fl (7.2-11.7); MONO # 0.7 K/uL (0.0-0.8); MONO % 5.5 % (0.0-10.0); NEUT % 74.8 % (50.0-75.0); RED CELL DISTRIBUTION WIDTH 13.6 % (11.5-14.5); WHITE BLOOD COUNT 13.4 K/uL (4.8-10.8)
[2017-08-18 17:59] LABS: ALKALINE PHOSPHATASE 71 U/L (38-126); ALT/SGPT 25 U/L (9-52); AST/SGOT 20 U/L (14-36); BILIRUBIN,TOTAL 0.3 mg/dl (0.2-1.3); BLOOD UREA NITROGEN 8 mg/dl (7-17); CALCIUM 8.6 mg/dL (8.4-10.2); CARBON DIOXIDE 19 mmol/L (22-30); CHLORIDE 108 mmol/L (98-107); GFR AFRICAN-AMERICAN > 60; GLUCOSE,RANDOM 102 mg/dL (65-105); LIPASE 247 U/L (23-300); POTASSIUM 3.6 MMOL/L (3.6-5.0); SODIUM 141 mmol/l (132-148); TOTAL PROTEIN 6.5 G/DL (6.3-8.2)
[2017-08-18 18:00] LABS: MEAN CELL VOLUME 87.7 fl (81.0-99.0)
[2017-08-19 01:02] VITALS: BP 101/58; PULSE 82; RESP 20
--- NOTE | 2017-08-19 03:20 | OBDCSUM ---
Datetime: 08/18/2017 20:47 Discharged to, Provider: Home Follow up at, Provider: [employer] Disch Instr Activity: Normal activity Disch Instr Diet: Regular Discharge Instructions, Provider: Routine instructions given Discharge Time: 08/18/2017 20:47 Follow up in weeks, Provider: 08/30/2017 Disch Activity Restrictions: No lifting Discharge Comment, Provider: -pt stable, labs wnl, pt tolerated PO fluids, b/l upper abd pain resolv ed P:-Discharge home -follow up with you obgyn within 1 week case discussed with Dr. Stephen OB Hospitalist note: This pt was seen and examined by me. Agree with above note. ROSAS Rosenthal M.D. PGY2 Discharge Diagnosis Prov Other: b/l upper abd tenderness
--- NOTE | 2017-08-19 03:21 | OBHP ---
Datetime: 08/18/2017 18:45 IP Adm Impression: , intrauterine ; No Active Labor; Intact Membranes IP Admit Plan: Observation/Evaluation Admit Comment, IP Provider: CC: Upper abdominal discomfort HPI: 32 yo at 26.6 weeks GA with EDC by LMP + FM; -: CTX, VB, ROM Pt states that starting at 9 am yesterday, she experienced bilateral Upper abdominal/sub rib tende rness; Pain is intermittent; Slight nausea; Denies Vomiting/SOB [facility] Past obhx: n/a Past gyne: denies STIs; pap 05/2017 wnl pmhx: none psurg: none soc: denies: smoking, alcohol, illicit drugs Rx: PNV; PCN x 5 days for oral gum infection Allergies: NKDA VITALS: 105/64 89 PE: General: pleasant, in no acute distress HEENT: normocephalic, PERRLA; AAOx3 Heart: no murmurs, regular rate and rhythm, S1, S2 normal. Lungs: clear to auscultation bilaterally, no wheezing Abdomen: nontender, gravid CVA: negative Lower extremities: negative for pitting edema Monitor: moderate variability; accel 15x15, no decel, FHR: 140 Assessment: 32 yo IUP at 26.6 no obstetrics history Abdominal tenderness Plan: Labs: CBC/CMP, Lipase, amylase Abdominal pain likely musculoskeletal in nature; case d/w Dr. Zafar GOLDMAN PGY1 OB Hospitalist note: This pt was seen and examined by me. Agree with above note. ROSAS She was seen in Er downstairs...will check amylase...allow to take PO fluids and observe Pelvic Type - PN: Adequate Extremities - PN: Normal Abdomen - PN: Normal Back - PN: Normal Breast - PN: Not Done Lungs - PN: Normal Heart - PN: Normal Thyroid - PN: Not Done Neurologic - PN: Normal HEENT - PN: Normal General - PN: Normal FHR - Baseline A Provider: 140 Comments, ACOG Physical Exam: ROS: General: no weakness; no fatigue HEENT: no ISLAS; no visual dist CV: no palpitations; no no CP GI: + N/no V no diarhea; feels hungry : no F/U/D MS: No joint pain EGA AdmitDate IP: 26.6 Vital Signs Provider: Reviewed; Within Normal Limits IP Chief Complaint: Maternal discomfort NICHD Variability Prov Fetus A: Moderate 6-25bpm NICHD Accel Fetus A IP Provider: 15X15 FHR Category Provider Fetus A: Category I NICHD Decel Fetus A IP Provider: None Genitourinary Exam: Not Done DTRs - PN: Not Done
[2017-08-19 07:35] VITALS: O2SAT 100
== END 2017-08-18 20:55 | disposition home or self-care (01) ==
LOC: H.ER 16:58 → H.EROB2 16:58 → H.ER 17:39 → H.EROB 18:23 → H.EROB2 20:55
DX: O47.02 False labor before 37 completed weeks of gestation, second trimester (principal); Z3A.26 26 weeks gestation of pregnancy

== ENCOUNTER 2017-11-10 16:07 | Emergency (ER) | payer SELFPAY ==
[2017-09-25 09:17] VITALS: BMI 28.3
[2017-11-11 00:52] VITALS: BP 113/71; PULSE 82; O2SAT 100
--- NOTE | 2017-11-11 07:49 | OBHP ---
Datetime: 11/10/2017 19:15 IP Adm Impression: Term, intrauterine IP Admit Plan: Discharge home Admit Comment, IP Provider: 32 y/o F at 38.3 weeks GA, ROGELIO 11/18/17 according to 1st trim US, c /o vaginal bleeding and uterine CTX. Vaginal bleeding began at 9 AM this morning, described as spotti ng and small amounts. No LOF. FM present. Pt denies headache, visual disturbances, CP, SOB, N/V, urin jasper complaints or pruritus. NKDA PNC Clinic: [facility] PN Labs: unremarkable except for Rubella equivocal. OBHx: PMHx: denied. PSHx: denied FHx: NC SHx: No tobacco, alcohol or rec drugs. A/P: 32 y/o F with IUP at 38.3 weeks GA, NOT in active labor. -Will discharge pt home -ER precautions discussed. -Ptr instructed to increased fluid intake and kick counts Case discussed with Dr Lacy, OB insurance verification clerk Vidhya PGY-1 I saw and examined patient. Agree with above plan. Both MWB/FWB reassuring at this time Regino Pelvic Type - PN: Adequate Extremities - PN: Normal Abdomen - PN: Normal Lungs - PN: Normal Heart - PN: Normal Thyroid - PN: Normal Neurologic - PN: Normal HEENT - PN: Normal General - PN: Normal FHR - Baseline A Provider: 130 Gestation - Est Wks by US: 38.3 IP Hx Assessment: The History has been Reviewed and is Current EGA AdmitDate IP: 38.6 Vital Signs Provider: Reviewed IP Chief Complaint: Uterine contractions; Vaginal bleeding; Maternal discomfort NICHD Variability Prov Fetus A: Moderate 6-25bpm NICHD Accel Fetus A IP Provider: 15X15 FHR Category Provider Fetus A: Category II NICHD Decel Fetus A IP Provider: None Dilatation, Provider: Closed Effacement, Provider: 0 Station, Provider: -3 Genitourinary Exam: Normal
== END 2017-11-10 19:40 | disposition home or self-care (01) ==
LOC: H.EROB2 16:07
DX: O47.1 False labor at or after 37 completed weeks of gestation (principal); Z3A.39 39 weeks gestation of pregnancy; O26.93 Pregnancy related conditions, unspecified, third trimester; R10.2 Pelvic and perineal pain

== ENCOUNTER 2017-11-12 04:23 | Emergency (ER) | payer SELFPAY ==
[2017-09-25 09:17] VITALS: BMI 28.3
--- NOTE | 2017-11-12 05:26 | OBDCSUM ---
Datetime: 11/12/2017 05:11 Discharged to, Provider: Home Follow up at, Provider: [facility] Disch Instr Activity: Normal activity Disch Instr Diet: Regular Discharge Instructions, Provider: Routine instructions given Discharge Diagnosis, Provider: False Labor - Undelivered Discharge Time: 11/12/2017 05:11 Follow up in weeks, Provider: 11/16/2017 Disch Referrals: None Contraception discussed, Prov: Yes Disch Activity Restrictions: No lifting; Minimize stair-climbing
--- NOTE | 2017-11-12 05:26 | OBHP ---
Datetime: 11/12/2017 05:21 IP Adm Impression: Term, intrauterine IP Admit Plan: Observation/Evaluation; Discharge home Admit Comment, IP Provider: Patient is a @ 38.6 wks with contractions. Denies vb, leaking, +FM. Patient denies antepartum issues, no medical problems, no surgical problems, no allergies VE=/-3 [id number] mod romaine, +accels, no decels TOCO = ctxning q 2-4 mins A/P 1. Patient ruled out for labor, to be discharged home. 2. Labor precautions given, f/u in clinic next week Pelvic Type - PN: Adequate Extremities - PN: Normal Abdomen - PN: Normal Back - PN: Normal Breast - PN: Normal Lungs - PN: Normal Heart - PN: Normal Thyroid - PN: Normal Neurologic - PN: Normal HEENT - PN: Normal General - PN: Normal FHR - Baseline A Provider: 125 Contraction Comments Provider: q 2-4 mins EGA AdmitDate IP: 38.6 Vital Signs Provider: Reviewed; Within Normal Limits IP Chief Complaint: Uterine contractions NICHD Variability Prov Fetus A: Moderate 6-25bpm NICHD Accel Fetus A IP Provider: 15X15 NICHD Decel Fetus A IP Provider: None Dilatation, Provider: 1 Effacement, Provider: 50 Station, Provider: -3 Genitourinary Exam: Normal DTRs - PN: Normal
[2017-11-12 11:26] VITALS: BP 115/69; PULSE 74
== END 2017-11-12 05:30 | disposition home or self-care (01) ==
LOC: H.EROB2 04:23
DX: O47.1 False labor at or after 37 completed weeks of gestation (principal); Z3A.39 39 weeks gestation of pregnancy; O26.93 Pregnancy related conditions, unspecified, third trimester; R10.2 Pelvic and perineal pain

== ENCOUNTER 2017-11-13 11:25 | Emergency (ER) | payer SELFPAY ==
[2017-09-25 09:17] VITALS: BMI 28.3
--- NOTE | 2017-11-13 12:15 | OBDCSUM ---
Datetime: 11/13/2017 12:06 Discharged to, Provider: Home Follow up at, Provider: [facility] Disch Instr Activity: Normal activity Disch Instr Diet: Regular Discharge Time: 11/13/2017 12:10 Follow up in weeks, Provider: 11/16/2017
--- NOTE | 2017-11-13 12:15 | OBHP ---
Datetime: 11/13/2017 12:08 IP Adm Impression: Term, intrauterine IP Admit Plan: Discharge home Admit Comment, IP Provider: Patient is a @ 39.0 wks with contractions, mild vaginal spotting, n o leaking, +FM. Patient denies antepartum issues, no medical problems, no surgical problems. Patient was a rule out labor 2 days ago. Again, patient is FT/60/-3 on exam. [id number] mod romaine, +accels, no dec els. TOCO = ctnxing q 4-6 mins. Patient ruled out for labor and labor precautions given. Discharge ho me, F/U in clinic this week Pelvic Type - PN: Adequate Extremities - PN: Normal Abdomen - PN: Normal Back - PN: Normal Breast - PN: Normal Lungs - PN: Normal Heart - PN: Normal Thyroid - PN: Normal Neurologic - PN: Normal HEENT - PN: Normal General - PN: Normal FHR - Baseline A Provider: 130 Contraction Comments Provider: q 4-6 mins EGA AdmitDate IP: 39.0 Vital Signs Provider: Reviewed; Within Normal Limits IP Chief Complaint: Uterine contractions NICHD Variability Prov Fetus A: Moderate 6-25bpm NICHD Accel Fetus A IP Provider: 15X15 NICHD Decel Fetus A IP Provider: None Dilatation, Provider: FT Effacement, Provider: 60 Station, Provider: -3 Genitourinary Exam: Normal DTRs - PN: Normal
--- NOTE | 2017-11-13 12:17 | OBDCSUM ---
Datetime: 11/13/2017 12:06 Discharged to, Provider: Home Follow up at, Provider: [facility] Disch Instr Activity: Normal activity Disch Instr Diet: Regular Discharge Diagnosis, Provider: False Labor - Undelivered Discharge Time: 11/13/2017 12:10 Follow up in weeks, Provider: 11/16/2017
[2017-11-13 17:11] VITALS: BP 117/82; PULSE 87; TEMP 97.9; O2SAT 100
== END 2017-11-13 12:10 | disposition home or self-care (01) ==
LOC: H.EROB2 11:25
DX: O47.1 False labor at or after 37 completed weeks of gestation (principal); Z3A.39 39 weeks gestation of pregnancy; O26.93 Pregnancy related conditions, unspecified, third trimester; R10.2 Pelvic and perineal pain

== ENCOUNTER 2017-11-13 22:33 | Inpatient (IN) | payer MEDICAID, SELFPAY ==
[2017-11-13 23:07] VITALS: BMI 27.9
[2017-11-13] MEDS ORDERED: Lidocaine 2% Inj (20ml) ONE (23:09)
[2017-11-13] MEDS: Lactated Ringer's 1,000 ML IV SCH (23:15)
[2017-11-13 23:57] LABS: BASO # 0.1 K/uL (0.0-0.2); BASO % 0.5 % (0.0-2.0); HEMOGLOBIN 12.9 g/dL (12.0-16.0); LYMPH # 1.4 K/uL (1.0-4.3); LYMPH % 6.3 % (20.0-40.0); MEAN CELL VOLUME 87.9 fl (81.0-99.0); MEAN CORPUSCULAR HEMOGLOBIN 29.2 pg (27.0-31.0); MEAN CORPUSCULAR HGB CONC 33.3 g/dL (33.0-37.0); MEAN PLATELET VOLUME 9.1 fl (7.2-11.7); MONO # 1.4 K/uL (0.0-0.8); NEUT # 19.9 K/uL (1.8-7.0); NEUT % 87.2 % (50.0-75.0); PLATELET COUNT 262 K/uL (130-400); RBC 4.41 Mil/uL (3.80-5.20); RED CELL DISTRIBUTION WIDTH 13.8 % (11.5-14.5); WHITE BLOOD COUNT 22.8 K/uL (4.8-10.8)
[2017-11-14] MEDS: Lactated Ringer's 1,000 ML IV SCH ×3 (00:14→03:59)
[2017-11-14] MEDS ORDERED: Fentanyl/Bupivacaine HCl 250 ML EPI ONE (00:22)
[2017-11-14] MEDS ORDERED: Nalbuphine 20 mg/ml Inj (1 ml) IVP PRN (00:26)
[2017-11-14] MEDS ORDERED: Nalbuphine 20 mg/ml Inj (1 ml) ONE (00:30)
[2017-11-14 01:51] LABS: TOTAL CELLS COUNTED 100
[2017-11-14 01:52] LABS: BANDS 1 % (0-2); LYMPHOCYTE 8 % (20-50); MONOCYTE 5 % (0-10); NEUTROPHIL 86 % (42-75); PLATELET ESTIMATE NORMAL (NORMAL)
--- NOTE | 2017-11-14 07:15 | OBADHP ---
Datetime: 11/14/2017 02:40 FHR - Baseline A Provider: [facility] Variability Prov Fetus A: Marked >25bpm Dilatation, Provider: 8 Effacement, Provider: 100 Station, Provider: -1 Datetime: 11/13/2017 23:00 Admit Comment, IP Provider: 32 y/o F at 39 weeks GA, ROGELIO 11/20/17 by 6 weeks-US, c/o uterine C TX that aggravated 2 hours ago, 10/10 intensity and every 5 minutes. Pt report vagina spotting since this morning. No LOF. FM present. Pt denies headache, dizziness, visual disturbances, CP, SOB, N/V, u rinary complaints or pruritus. NKDA Meds: PNV PNC Clinic: [facility] PN Labs: blood group Bpos, antibody screen neg, GC/Chlamydia neg, GBS neg, HBsAg neg, HIV neg, RPR neg, Rubella Equivocal, Tdap on 11/09/17. PMHx: denied. PSHx: denied FHx: nephew with Down's syndrome. SHx: No tobacco, alcohol or rec drugs. A/P: 32 y/o F with IUP at 39 weeks GA in active labor. -Admit to L_D unit. -Labor protocol inititated. Case discussed with Dr Mcdaniel, OB software applications architect. Vidhya PGY-1. Addendum by Dr. Mcdaniel: I have evaluated the patient independently and I agree with the above Pelvic Type - PN: Adequate Extremities - PN: Normal Abdomen - PN: Normal Back - PN: Normal Lungs - PN: Normal Heart - PN: Normal Thyroid - PN: Normal Neurologic - PN: Normal HEENT - PN: Normal General - PN: Normal Membranes, Provider: Bulging Gestation - Est Wks by US: 39.0 Pool Provider: Negative IP Hx Assessment: The History has been Reviewed and is Current Vital Signs Provider: Reviewed IP Chief Complaint: Uterine contractions; Maternal discomfort NICHD Accel Fetus A IP Provider: 15X15 FHR Category Provider Fetus A: Category I Genitourinary Exam: Normal EGA AdmitDate IP: 39.0 IP Adm Impression: Term, intrauterine ; Active labor IP Admit Plan: Admit to unit; Initiate labor protocol Datetime: 11/13/2017 12:08 Breast - PN: Normal Contraction Comments Provider: q 4-6 mins NICHD Decel Fetus A IP Provider: None DTRs - PN: Normal Datetime: 09/25/2017 10:10 IP Chief Complaint Other: pain Datetime: 08/18/2017 18:45 Comments, ACOG Physical Exam: ROS: General: no weakness; no fatigue HEENT: no ISLAS; no visual dist CV: no palpitations; no no CP GI: + N/no V no diarhea; feels hungry : no F/U/D MS: No joint pain
[2017-11-14] MEDS ORDERED: Benzocaine/Menthol SPRAY TOP PRN ×2 (08:53→09:57)
[2017-11-14] MEDS ORDERED: Oxycodone/Acetaminophen 5/325 mg Tab PO PRN ×4 (08:53→09:57)
[2017-11-15 06:33] LABS: BASO # 0.1 K/uL (0.0-0.2); BASO % 0.4 % (0.0-2.0); EOS # 0.1 K/uL (0.0-0.7); EOS % 0.3 % (0.0-4.0); HEMOGLOBIN 9.8 g/dL (12.0-16.0); LYMPH # 2.5 K/uL (1.0-4.3); MEAN CELL VOLUME 88.6 fl (81.0-99.0); MEAN CORPUSCULAR HEMOGLOBIN 29.6 pg (27.0-31.0); MEAN CORPUSCULAR HGB CONC 33.4 g/dL (33.0-37.0); MEAN PLATELET VOLUME 8.1 fl (7.2-11.7); MONO # 1.4 K/uL (0.0-0.8); MONO % 6.3 % (0.0-10.0); NEUT # 18.8 K/uL (1.8-7.0); RBC 3.32 Mil/uL (3.80-5.20); RED CELL DISTRIBUTION WIDTH 14.3 % (11.5-14.5)
--- NOTE | 2017-11-15 07:30 | OBPPN ---
Datetime: 11/15/2017 07:15 PP Pain Prov: Within normal limits PP Nausea Prov: Denies PP Flatus Prov: Yes PP BM Prov: Yes PP Heart Prov: Normal PP Lungs Prov: Normal PP Abdomen/Uterus Prov: Normal PP Lochia Prov: Normal PP Vulva/Perineum Prov: Normal PP CVA Tenderness Prov: Normal PP Extremities Prov: Normal PP C/S Incision Prov: Not Applicable PP Progress Prov: Normal PP Impression Prov: Normal progression PP Plan Prov: Continue present management PP Progress Note Prov: 32 y/o F now on PPD 1. Pt had a on 11/14/17 and had 1st degree ariadna francis laceration. Pt reports feeling well. No acute events overnight. Pt tolerating PO, urinating with no difficulties and ambulating. Lochia is decreasing in amount. Pt but not producing e nough milk as per pt, supplementing with formula. Pain is well controlled with medications. Pt report s passing gasses and had a bowel movement yesterday. Pt denies headache, visual disturbances, CP, SOB , N/V or pruritus. PE Gen: Pt resting comfortably on bed, AAOx3, not in acute distress. Lungs: CTA B/L. No W/R/R. CV: S1 S2 present, regular rhythm. Abd: BS+, soft, fundus of uterus firm and at umbilicus. Ext: no edema, neg Hansa's sign, non-tender calves. NEURO/PSYCH: no grossly focal deficit, preserved affect and mood. A/P: 32 y/o on PPD 1, recovering well from . -Continue medical management. -Encouraged and ambulation. Case discussed with OB transmission tester. Vidhya PGY-1 OB Hospitalist Addendum: Pt seen and examined by me. Agree w/ above. PPD 1 s/p , doing well, breast and bottle feeding. Continue current managment. (ES) IP PP Procedures: None Vital Signs Provider PP: Reviewed
[2017-11-16] MEDS ORDERED: Measles, Mumps, and Rubella 0.5 ML VIAL SC ONE ×2 (07:00→08:53)
--- NOTE | 2017-11-16 12:04 | OBPPN ---
Datetime: 11/16/2017 06:12 PP Pain Prov: Within normal limits PP Nausea Prov: Denies PP Flatus Prov: Yes PP BM Prov: Yes PP Heart Prov: Normal PP Lungs Prov: Normal PP Abdomen/Uterus Prov: Normal PP Lochia Prov: Normal PP CVA Tenderness Prov: Normal PP Extremities Prov: Normal PP C/S Incision Prov: Not Applicable PP Progress Prov: Normal PP Impression Prov: Normal progression PP Plan Prov: Discharge PP Progress Note Prov: 32 y/o F now on PPD 2. Pt had a on 11/14/17 and had 1st degree ariadna francis laceration. Pt reports feeling well, afebrile with no acute events overnight. Pt tolerating PO, urinating with no difficulties and ambulating. Lochia is decreasing in amount. Pt and s upplementing with formula. Pelvic pain is mild, aggravated when moving from side to side, but is well controlled with medications. Pt reports passing gasses and had a bowel movement yesterday. Pt denies headache, visual disturbances, CP, SOB, N/V or pruritus. O: Post- H/H was 9.8/29.4-Anemia PE Gen: Pt resting comfortably on bed, AAOx3, not in acute distress. Lungs: CTA B/L. No W/R/R. CV: S1 S2 present, regular rhythm. Abd: BS+, soft, fundus of uterus firm and below umbilicus. Ext: no edema, neg Hansa's sign, non-tender calves. NEURO/PSYCH: no grossly focal deficit, preserved affect and mood. A/P: 32 y/o on PPD 2, recovering well from , equivocal rubella titers and post- no rmocytic anemia. -Will discharge pt home today. -MMR will be administered today. -Encourage . -Continue PNV 1 tab PO daily. -Ibuprofen 600mg PO PRN for moderate/severe pain, Feosol 325 PO BID for anemia, Colace 100 mg PO d aily for constipation. -Ambulate with caution, no heavy lifting, nothing per vagina for 6 weeks. -If excessive bleeding, intolerable pain or fever despite medications, go to ER. - F/U with clinic, [facility] on Monday01/03/18 at 1pm for post- eval uation. appointment on 11/24/17 at 3:30pm with Dr Burgos at the [facility]. Vidhya PGY-1 The patient was seen with the resident I agree with note IP PP Procedures: None Vital Signs Provider PP: Reviewed
--- NOTE | 2017-11-16 12:07 | OBDCSUM ---
Datetime: 11/16/2017 06:16 Discharged to, Provider: Home Follow up at, Provider: [facility] Disch Instr Activity: Normal activity; May be up to bathroom; May be up for meals; May Shower Disch Instr Diet: Regular Discharge Instructions, Provider: Routine instructions given Discharge Diagnosis, Provider: Term Delivered Discharge Time: 11/16/2017 10:00 Follow up in weeks, Provider: 4-6 weeks Disch Referrals: None Contraception discussed, Prov: No Disch Activity Restrictions: No lifting; Minimize stair-climbing; No sexual activity Discharge Comment, Provider: -Encourage . -Continue PNV 1 tab PO daily. -Ibuprofen 600mg PO PRN for moderate/severe pain, Feosol 325 PO BID for anemia, Colace 100 mg PO d aily for constipation. -Ambulate with caution, no heavy lifting, nothing per vagina for 6 weeks. -If excessive bleeding, intolerable pain or fever despite medications, go to ER. - F/U with clinic, [facility] on Monday01/03/18 at 1pm for post- eval uation. [place] appointment on 11/24/17 at 3:30pm with Dr Burgos at the [facility]. Patient was cleared for discharge
[2017-11-16 18:27] VITALS: BP 102/72; PULSE 98; RESP 20; TEMP 98.3; O2SAT 99
== END 2017-11-16 13:00 | disposition home or self-care (01) | DRG 775 ==
LOC: H.EROB2 22:33 → H.L&D 23:07 → H.OB/GYN 11-14 10:38
PROVIDERS: ADMIT Obstetrics & Gynecology; ATTEND Obstetrics & Gynecology
PROC: 10E0XZZ Delivery of Products of Conception, External Approach (ICD-10-PCS; principal; 2017-11-13)
PROC: 0HQ9XZZ Repair Perineum Skin, External Approach (ICD-10-PCS; 2017-11-13)
PROC: 4A1HXCZ Monitoring of Products of Conception, Cardiac Rate, External Approach (ICD-10-PCS; 2017-11-13)
DX: O70.0 First degree perineal laceration during delivery (principal); K59.00 Constipation, unspecified; O99.02 Anemia complicating childbirth; Z37.0 Single live birth; Z3A.39 39 weeks gestation of pregnancy

== ENCOUNTER 2018-06-06 08:35 | Emergency (ER) | payer OTHER, SELFPAY ==
[2018-06-06 08:36] VITALS: BMI 27.9
[2018-06-06 08:46] VITALS: PULSE 79; RESP 19; TEMP 98.1; O2SAT 99
[2018-06-06 09:07] VITALS: BP 118/60
--- NOTE | 2018-06-06 09:25 | ED PDOC ---
HPI: Eye Injury/Pain Time Seen by Provider: 06/06/18 09:09 Chief Complaint (Nursing): ENT Problem Chief Complaint (Provider): left eye redness History Per: Patient History/Exam Limitations: no limitations Onset/Duration Of Symptoms: Days (x2) Current Symptoms Are (Timing): Still Present Associated Symptoms: Itching, Discharge From Eye (yellow). denies: Decreased Vision Additional Complaint(s): Nafisa Curtis is a 32 year old female, with no significant past medical history, who presents to the emergency department complaining of left eye redness onset for x2 days associated with itching and yellow discharge. Patient also reports noticing swelling to left side of neck with pain on swallowing. Patient denies any vision changes, cough or shortness of breath. No further medical complaints. PMD: None provided. Past Medical History Reviewed: Historical Data, Nursing Documentation, Vital Signs Vital Signs: Last Vital Signs Temp 98.1 F 06/06/18 08:46 Pulse 79 06/06/18 08:46 Resp 19 06/06/18 08:46 BP 118/60 06/06/18 09:07 Pulse Ox 99 06/06/18 08:46 - Medical History PMH: No Chronic Diseases Denies: Depression, Diabetes, HTN - Surgical History Surgical History: No Surg Hx - Family History Family History: States: Unknown Family Hx - Social History Current smoker - smoking cessation education provided: No Alcohol: None Drugs: Denies - Home Medications Home Medications: Ambulatory Orders Medication Instructions Recorded Amoxicillin/Potassium Clav 1 tab PO TID #30 tab 06/06/18 [Augmentin 500 mg-125 mg] Tobramycin 0.3% [Tobramycin 5 Ml] 1 drop OP TID #1 bottle 06/06/18 - Allergies Allergies/Adverse Reactions: Allergies Allergy/AdvReac Type Severity Reaction Status Date / Time No Known Allergies Allergy Verified 06/06/18 08:49 Review of Systems ROS Statement: Except As Marked, All Systems Reviewed And Found Negative Eyes: Positive for: Redness (left eye with yellow discharge). Negative for: Vision Change ENT: Positive for: Other (swelling to left side of neck) Respiratory: Negative for: Cough, Shortness of Breath Physical Exam - Reviewed Nursing Documentation Reviewed: Yes Vital Signs Reviewed: Yes - Physical Exam Appears: Positive for: Non-toxic Head Exam: Positive for: ATRAUMATIC, NORMAL INSPECTION, NORMOCEPHALIC Skin: Positive for: Normal Color, Warm, Dry Eye Exam: Positive for: EOMI, PERRL, Conjunctival injection (conjunctival and sclera injection left side) ENT: Positive for: Tonsillar Exudate (right side). Negative for: Tonsillar Swelling Neck: Positive for: Supple. Negative for: Normal (questionable mass to left side of thyroid. <1cm movable, nontender.) Extremity: Positive for: Normal ROM (upper and lower extremities). Negative for : Deformity, Swelling Neurologic/Psych: Positive for: Alert, Oriented - ECG O2 Sat by Pulse Oximetry: 99 (RA) Pulse Ox Interpretation: Normal Medical Decision Making Medical Decision Making: Time: 09:09 Initial Plan: --T4 --TSH --Rapid Strep Group A Antigen --Reevaluation ----- Scribe Attestation: Documented by García Marrero, acting as a scribe for Nii Hussein MD. Provider Scribe Attestation: All medical record entries made by the Scribe were at my direction and personally dictated by me. I have reviewed the chart and agree that the record accurately reflects my personal performance of the history, physical exam, medical decision making, and the department course for this patient. I have also personally directed, reviewed, and agree with the discharge instructions and disposition. Disposition - Clinical Impression Clinical Impression: Tonsillitis, Conjunctivitis - Patient ED Disposition Is Patient to be Admitted: No - Disposition Referrals: [facility] [Outside] Disposition: Routine/Home Disposition Time: 10:32 Condition: FAIR Prescriptions: Amoxicillin/Potassium Clav [Augmentin 500 mg-125 mg] 1 tab PO TID #30 tab Tobramycin 0.3% [Tobramycin 5 Ml] 1 drop OP TID #1 bottle Instructions: Sore Throat, Adult (DC), Conjunctivitis ([place]) Forms: [employer] (Egyptian) Print Language: CYMRO
[2018-06-06 10:16] LABS: T4 9.01 ug/dl (5.5-11.0)
== END 2018-06-06 10:38 | disposition home or self-care (01) ==
LOC: H.ER 08:35
DX: J03.90 Acute tonsillitis, unspecified (principal); H10.9 Unspecified conjunctivitis

== ENCOUNTER 2019-02-19 15:38 | Emergency (ER) | payer OTHER ==
[2019-02-19 15:38] VITALS: BMI 27.9
[2019-02-19 16:01] VITALS: BP 110/58; PULSE 89; RESP 18; TEMP 98.4; O2SAT 100
--- NOTE | 2019-02-19 17:02 | ED PDOC ---
HPI: Abdomen Additional Complaint(s): 33 yo Female patient present to the ED c/o lower abdominal pain. Patient LMP was 01/11/19, she endorses having a positive test at home. Patient reported pain started 3 days ago, low pelvis, radiating to back, no vaginal bleeding or discharge, also denies dysuria, frequency or hematuria. Patient also reports associated nausea, but no vomiting. PMD: none provided <Brit Brand - Last Filed: 02/19/19 18:46> <Yanna Green - Last Filed: 02/20/19 10:38> Time Seen by Provider: 02/19/19 16:16 Chief Complaint (Nursing): Abdominal Pain Supervising Attending Note - Supervising Attending Note The Documented history was done by the: [facility], Attending Physician The documented physical exam was done by the: [facility], Attending Physician The documented procedures were done by the: [facility], Attending Physician - Attestation: I have personally seen and examined this patient.: Yes I have fully participated in the care of the patient.: Yes I have reviewed all pertinent clinical information: Yes <Yanna Green - Last Filed: 02/20/19 10:38> Past Medical History Vital Signs: Last Vital Signs Temp 98.4 F 02/19/19 15:59 Pulse 89 02/19/19 15:59 Resp 18 02/19/19 15:59 BP 110/58 L 02/19/19 15:59 Pulse Ox 100 02/19/19 15:59 - Medical History PMH: No Chronic Diseases Denies: Depression, Diabetes, HTN - Family History Family History: States: Unknown Family Hx <Brit Brand - Last Filed: 02/19/19 18:46> Reviewed: Historical Data, Nursing Documentation, Vital Signs Vital Signs: Last Vital Signs Temp 98.4 F 02/19/19 15:59 Pulse 89 02/19/19 15:59 Resp 18 02/19/19 15:59 BP 110/58 L 02/19/19 15:59 Pulse Ox 100 02/19/19 18:46 - Surgical History Surgical History: No Surg Hx <Yanna Green - Last Filed: 02/20/19 10:38> - Home Medications Home Medications: Ambulatory Orders Medication Instructions Recorded Amoxicillin/Potassium Clav 1 tab PO TID #30 tab 06/06/18 [Augmentin 500 mg-125 mg] Tobramycin 0.3% [Tobramycin 5 Ml] 1 drop OP TID #1 bottle 06/06/18 - Allergies Allergies/Adverse Reactions: Allergies Allergy/AdvReac Type Severity Reaction Status Date / Time No Known Allergies Allergy Verified 02/19/19 15:59 Review of Systems Constitutional: Negative for: Fever, Chills, Weakness Cardiovascular: Negative for: Chest Pain, Palpitations Respiratory: Negative for: Cough, Shortness of Breath Gastrointestinal: Positive for: Nausea. Negative for: Vomiting, Abdominal Pain Genitourinary Female: Positive for: Pelvic Pain. Negative for: Dysuria, Frequency, Hematuria, Vaginal Bleeding Neurological: Negative for: Weakness, Numbness, Dizziness <Brit Brand - Last Filed: 02/19/19 18:46> ROS Statement: Except As Marked, All Systems Reviewed And Found Negative <Yanna Green - Last Filed: 02/20/19 10:38> Physical Exam - Reviewed Nursing Documentation Reviewed: Yes Vital Signs Reviewed: Yes - Physical Exam Appears: Positive for: No Acute Distress Head Exam: Positive for: NORMAL INSPECTION Skin: Positive for: Normal Color, Warm, Dry Eye Exam: Positive for: EOMI, PERRL Neck: Positive for: Normal, Supple Cardiovascular/Chest: Positive for: Regular Rate, Rhythm. Negative for: Murmur, Tachycardia Respiratory: Positive for: Normal Breath Sounds. Negative for: Crackles, Rales, Wheezing Gastrointestinal/Abdominal: Positive for: Bowel Sounds, Soft, Tenderness (b/l on lower quadrants, no rebound or guarding). Negative for: Distended Back: Negative for: L CVA Tenderness, R CVA Tenderness Neurological/Psych: Positive for: Awake, Alert, Oriented, national sales associate II-XII <Brit Brand - Last Filed: 02/19/19 18:46> - Reviewed Nursing Documentation Reviewed: Yes <Yanna Green - Last Filed: 02/20/19 10:38> - ECG O2 Sat by Pulse Oximetry: 100 <Brit Brand - Last Filed: 02/19/19 18:46> - Laboratory Results Lab Results: Urine Color Yellow (YELLOW) 02/19/19 16:55 Urine Clarity Slighty-cloudy (Clear) 02/19/19 16:55 Urine pH 5.0 (5.0-8.0) 02/19/19 16:55 Ur Specific [place] 1.026 (1.003-1.030) 02/19/19 16:55 Urine Protein Negative mg/dL (NEGATIVE) 02/19/19 16:55 Urine Glucose (UA) Neg mg/dL (NEGATIVE) 02/19/19 16:55 Urine Ketones Negative mg/dL (NEGATIVE) 02/19/19 16:55 Urine Blood Negative (NEGATIVE) 02/19/19 16:55 Urine Nitrate Negative (NEGATIVE) 02/19/19 16:55 Urine Bilirubin Negative (NEGATIVE) 02/19/19 16:55 Urine Urobilinogen 1.0 mg/dL (0.2-1.0) 02/19/19 16:55 Ur Leukocyte Esterase Trace Becca/uL (Negative) 02/19/19 16:55 Urine RBC (Auto) 4 /hpf (0-3) H 02/19/19 16:55 Urine Microscopic WBC 3 /hpf (0-5) 02/19/19 16:55 Ur Squamous Epith Cells 5 /hpf (0-5) 02/19/19 16:55 Urine Bacteria Rare (<OCC) 02/19/19 16:55 Beta HCG, Quant 01423.00 mIU/mL 02/19/19 17:08 <Yanna Green - Last Filed: 02/20/19 10:38> Medical Decision Making Medical Decision Making: DDx includes: UTI, cramping pelvic pain, threatened Plan: -- Urine dip -- UA, urine pregn test -- quanti B-HCG -- TVUS -- Re eval Single intrauterine gestation. Yolk sac is visualized. pole is not identified on the current examination. Gestational sac diameter measures 0.9 cm too small to accurately characterize gestational age. age (Ultrasound estimated): Date of delivery (Ultrasound estimated) : Heart rate: bpm. Maggie-gestational hemorrhage: None. Uterus measures cm. No mass CERVIX: Long and closed. No cervical abnormality seen. RIGHT OVARY: Measures 3.1 x 2.3 x 3.2 cm. No mass. Normal flow. There is a 2.5 x 2.0 x 2.6 cm simple cyst. LEFT OVARY: Measures 4.2 x 1.9 x 3.8 cm. No mass. Normal flow. There is a 1.8 x 1.7 x 1.8 cm corpus luteum cyst. FREE FLUID: None. OTHER FINDINGS: None. IMPRESSION: Single intrauterine gestational sac too small to accurately characterize gestational age. Yolk sac is visualized however pole is not identified on the current examination. Clinical and ultrasound follow-up is recommended to assess viability. -- Patient feeling better, no pain at this time Will discharge pt with instructions to f/u at [facility] next week <Brit Brand - Last Filed: 02/19/19 18:46> Disposition - Disposition Disposition Time: 18:46 <Brit Brand - Last Filed: 02/19/19 18:46> - Patient ED Disposition Is Patient to be Admitted: No Doctor Will See Patient In The: Office Counseled Patient/Family Regarding: Studies Performed, Diagnosis, Need For Followup - Disposition Disposition: Routine/Home <Yanna Green - Last Filed: 02/20/19 10:38> - Clinical Impression Clinical Impression: , Abdominal pain during - Disposition Referrals: [facility] [Outside] Condition: GOOD Additional Instructions: f/u with primary OB next week Keep hydrated Return to ED in case of increased pain, vaginal bleeding any worsening or new sx Instructions: - The First Month Forms: [employer] (Japanese) Print Language: NORWEGIAN
[2019-02-19 17:13] LABS: SQUAMOUS EPITHIAL 5 /hpf (0-5); URINE BACTERIA RARE (<OCC); URINE BILIRUBIN NEGATIVE (NEGATIVE); URINE BLOOD NEGATIVE (NEGATIVE); URINE CLARITY SLIGHTY-CLOUDY (Clear); URINE COLOR YELLOW (YELLOW); URINE GLUCOSE (UA) NEG (NEGATIVE); URINE LEUKOCYTE ESTERASE TRACE Leu/uL (Negative); URINE PROTEIN NEGATIVE (NEGATIVE)
--- NOTE | 2019-02-19 18:31 | US ---
Date of service: 02/19/2019 PROCEDURE: OB Pelvic Ultrasound HISTORY: pelvic pain, COMPARISON: None available. FINDINGS: UTERUS: Single intrauterine gestation. Yolk sac is visualized. pole is not identified on the current examination. Gestational sac diameter measures 0.9 cm too small to accurately characterize gestational age. age (Ultrasound estimated): Date of delivery (Ultrasound estimated) : Heart rate: bpm. Maggie-gestational hemorrhage: None. Uterus measures cm. No mass CERVIX: Long and closed. No cervical abnormality seen. RIGHT OVARY: Measures 3.1 x 2.3 x 3.2 cm. No mass. Normal flow. There is a 2.5 x 2.0 x 2.6 cm simple cyst. LEFT OVARY: Measures 4.2 x 1.9 x 3.8 cm. No mass. Normal flow. There is a 1.8 x 1.7 x 1.8 cm corpus luteum cyst. FREE FLUID: None. OTHER FINDINGS: None. IMPRESSION: Single intrauterine gestational sac too small to accurately characterize gestational age. Yolk sac is visualized however pole is not identified on the current examination. Clinical and ultrasound follow-up is recommended to assess viability.
== END 2019-02-19 18:45 | disposition home or self-care (01) ==
LOC: H.ER 15:38
DX: O26.899 Other specified pregnancy related conditions, unspecified trimester (principal)